=== PATIENT | female | born 1975 | race Two or more races ===

== ENCOUNTER 2017-08-07 09:24 | Outpatient (CLI) | payer OTHER ==
[~2017-08-07 09:24] MED LIST: DICY10CA PO; ESTR0.624; ESTR0.624 PO; OMEPRAZOLE40 MG PO; PHENERGAN25 MG PO; PRILOSEC20 MG PO; ZANTAC300 MG PO
== END 2017-08-07 10:52 | disposition home or self-care (01) ==
LOC: SONOGRAMA 09:24
DX: E04.8 Other specified nontoxic goiter (principal)

== ENCOUNTER 2017-08-17 13:00 | Outpatient (CLI) | payer OTHER | END 2017-08-17 13:05 | disposition home or self-care (01) | LOC: LAB 13:00 | DX: R50.9 Fever, unspecified (principal) ==

== ENCOUNTER → 2017-08-17 | Outpatient (CLI) | payer OTHER ==
[~2017-08-17] VITALS: Ht 152.4 cm; Wt 102.1 kg
== END | disposition home or self-care (01) ==
LOC: PPHC 11:49
DX: B34.9 Viral infection, unspecified (principal)

== ENCOUNTER 2017-09-04 07:02 | Outpatient (CLI) | payer OTHER | END 2017-09-04 07:09 | disposition home or self-care (01) | LOC: LAB 07:02 | DX: E03.8 Other specified hypothyroidism (principal) ==

== ENCOUNTER 2017-10-03 13:53 | Outpatient (CLI) | payer OTHER | END 2017-10-03 14:01 | disposition home or self-care (01) | LOC: LAB 13:53 | DX: R50.9 Fever, unspecified (principal) ==

== ENCOUNTER → 2017-10-03 | Outpatient (CLI) | payer OTHER | END | disposition home or self-care (01) | LOC: PPHC 12:22 | DX: B34.9 Viral infection, unspecified (principal) ==

== ENCOUNTER 2017-10-12 12:34 | Outpatient (CLI) | payer OTHER | END 2017-10-12 12:42 | disposition home or self-care (01) | LOC: RAD 12:34 | DX: R05 Cough (principal) ==

== ENCOUNTER → 2017-10-12 | Outpatient (CLI) | payer OTHER | END | disposition home or self-care (01) | LOC: PPHC 11:18 | DX: R05 Cough (principal) ==

== ENCOUNTER 2017-10-20 13:58 | Emergency (ER) | payer OTHER ==
[~2017-10-20] VITALS: Ht 165.1 cm; Wt 102.1 kg
== END 2017-10-20 15:53 | disposition home or self-care (01) ==
LOC: ER 13:58
DX: J06.9 Acute upper respiratory infection, unspecified (principal)

== ENCOUNTER → 2018-02-20 06:59 | Outpatient (CLI) | payer OTHER | END | disposition home or self-care (01) | LOC: LAB 06:59 | DX: R42 Dizziness and giddiness (principal); R51 Headache; E78.2 Mixed hyperlipidemia ==

== ENCOUNTER → 2018-12-26 10:04 | Outpatient (CLI) | payer OTHER | END | disposition home or self-care (01) | LOC: LAB 10:04 | DX: E06.3 Autoimmune thyroiditis (principal); Z11.3 Encounter for screening for infections with a predominantly sexual mode of transmission ==

== ENCOUNTER 2019-01-16 08:59 | Outpatient (CLI) | payer OTHER | END 2019-01-16 09:10 | disposition home or self-care (01) | LOC: RAD 08:59 → MRI 09:15 | DX: E23.6 Other disorders of pituitary gland (principal); E04.2 Nontoxic multinodular goiter | CPT/HCPCS: 70553 ==

== ENCOUNTER 2019-05-22 16:12 | Outpatient (CLI) | payer OTHER | END 2019-05-22 16:48 | disposition home or self-care (01) | LOC: RAD 16:12 | DX: M25.552 Pain in left hip (principal); M25.551 Pain in right hip ==

== ENCOUNTER 2019-08-22 08:50 | Outpatient (CLI) | payer OTHER | END 2019-08-22 08:55 | disposition home or self-care (01) | LOC: LAB 08:50 | DX: J11.1 Influenza due to unidentified influenza virus with other respiratory manifestations (principal) ==

== ENCOUNTER 2019-10-09 11:27 | Outpatient (CLI) | payer OTHER | END 2019-10-09 11:31 | disposition home or self-care (01) | LOC: LAB 11:27 | DX: E03.8 Other specified hypothyroidism (principal); E21.4 Other specified disorders of parathyroid gland; R94.7 Abnormal results of other endocrine function studies; N93.1 Pre-pubertal vaginal bleeding ==

== ENCOUNTER 2019-10-29 13:32 | Outpatient (CLI) | payer OTHER | END 2019-10-29 15:21 | disposition home or self-care (01) | LOC: NUCLEAR 13:32 | DX: I73.9 Peripheral vascular disease, unspecified (principal); M79.662 Pain in left lower leg; M79.661 Pain in right lower leg ==

== ENCOUNTER 2019-12-17 11:33 | Outpatient (CLI) | payer OTHER ==
[2019-12-17] MEDS ORDERED: CILOXAN5 ML OP (12:09)
== END 2019-12-17 16:00 | disposition home or self-care (01) ==
LOC: OFIC 805 11:33
DX: T16.1XXA Foreign body in right ear, initial encounter (principal); H61.21 Impacted cerumen, right ear

== ENCOUNTER 2020-04-07 07:17 | Outpatient (CLI) | payer OTHER ==
[~2020-04-07 07:17] MED LIST changes: +CILOXAN5 ML OP; +CYCLOBENZAPRINE10 MG PO; +NAPR500T14 PO
== END 2020-04-07 07:26 | disposition home or self-care (01) ==
LOC: RAD 07:17
PROVIDERS: ATTEND Physical Medicine & Rehabilitation
DX: M54.5 Low back pain (principal)

== ENCOUNTER 2020-10-16 12:56 | Outpatient (CLI) | payer OTHER ==
[~2020-10-16 12:56] MED LIST changes: +DICLOFENAC POTA50 MG PO; +NORFLEX100MG PO
== END 2020-10-16 13:02 | disposition home or self-care (01) ==
LOC: MAMO-SONO 12:56
PROVIDERS: ATTEND Specialist
DX: Z12.31 Encounter for screening mammogram for malignant neoplasm of breast (principal); N63.0 Unspecified lump in unspecified breast

== ENCOUNTER 2020-11-17 09:44 | Emergency (ER) | payer OTHER ==
[~2020-11-17] VITALS: Ht 165.1 cm; Wt 97.5 kg
[2020-11-17] MEDS ORDERED: PERCOCET 5-3251 EACH PO (12:38)
[2020-11-17] MEDS ORDERED: DICLOFENAC SOD100 MG PO (12:38)
[2020-11-17] MEDS ORDERED: SKELAXIN800 MG PO (12:38)
== END 2020-11-17 12:57 | disposition home or self-care (01) ==
LOC: ER 09:44
DX: M54.5 Low back pain (principal); M62.830 Muscle spasm of back

== ENCOUNTER 2021-01-13 10:13 | Outpatient (CLI) | payer OTHER ==
[~2021-01-13 10:13] MED LIST changes: +DICLOFENAC SOD100 MG PO; +PERCOCET 5-3251 EACH PO; +SKELAXIN800 MG PO
== END 2021-01-13 16:39 | disposition home or self-care (01) ==
LOC: RAD 10:13
PROVIDERS: ATTEND Physical Medicine & Rehabilitation
DX: M54.2 Cervicalgia (principal)

== ENCOUNTER 2021-05-20 09:38 | Outpatient (CLI) | payer OTHER | END 2021-05-20 09:41 | disposition home or self-care (01) | LOC: LAB 09:38 | PROVIDERS: ATTEND Pediatrics Neonatal-Perinatal Medicine | DX: E07.89 Other specified disorders of thyroid (principal); E78.2 Mixed hyperlipidemia ==

== ENCOUNTER 2021-07-22 09:00 | Outpatient (CLI) | payer OTHER | END 2021-07-22 09:15 | disposition home or self-care (01) | LOC: PPH VACUNA 09:00 | PROVIDERS: ATTEND Emergency Medicine Pediatric Emergency Medicine | DX: Z23 Encounter for immunization (principal) ==

== ENCOUNTER 2021-07-23 11:38 | Outpatient (CLI) | payer OTHER | END 2021-07-23 16:08 | disposition home or self-care (01) | LOC: LAB 11:38 | PROVIDERS: ATTEND Internal Medicine Infectious Disease | DX: Z20.822 Contact with and (suspected) exposure to COVID-19 (principal) ==

== ENCOUNTER 2021-07-23 13:17 | Emergency (ER) | payer OTHER ==
[~2021-07-23] VITALS: Ht 165.1 cm; Wt 102.5 kg
== END 2021-07-23 18:16 ==
LOC: ER 13:17
DX: B34.9 Viral infection, unspecified (principal); J06.9 Acute upper respiratory infection, unspecified; T50.B95A Adverse effect of other viral vaccines, initial encounter; Z92.29 Personal history of other drug therapy; Z3A.00 Weeks of gestation of pregnancy not specified; O26.899 Other specified pregnancy related conditions, unspecified trimester

== ENCOUNTER 2021-08-12 11:30 | Outpatient (CLI) | payer OTHER | END 2021-08-12 11:33 | disposition home or self-care (01) | LOC: SONOGRAMA 11:30 | PROVIDERS: ATTEND Student in an Organized Health Care Education/Training Program | DX: E04.2 Nontoxic multinodular goiter (principal) ==

== ENCOUNTER 2021-09-22 12:18 | Outpatient (CLI) | payer OTHER | END 2021-09-22 12:19 | disposition home or self-care (01) | LOC: LAB 12:18 | PROVIDERS: ATTEND Student in an Organized Health Care Education/Training Program | DX: D48.5 Neoplasm of uncertain behavior of skin (principal); E78.2 Mixed hyperlipidemia; I10 Essential (primary) hypertension; E03.8 Other specified hypothyroidism; C73 Malignant neoplasm of thyroid gland ==

== ENCOUNTER 2021-12-15 15:11 | Outpatient (CLI) | payer OTHER ==
[~2021-12-15 15:11] MED LIST changes: +NAPROXEN500 MG PO
[2021-12-15] MEDS ORDERED: CELEBREX200MG PO (16:47)
[2021-12-15] MEDS ORDERED: SKELAXIN800 MG PO (16:47)
== END 2021-12-15 15:17 | disposition home or self-care (01) ==
LOC: RAD 15:11
PROVIDERS: ATTEND Physical Medicine & Rehabilitation
DX: M25.562 Pain in left knee (principal); M54.2 Cervicalgia; M54.6 Pain in thoracic spine

== ENCOUNTER 2021-12-30 09:34 | Outpatient (CLI) | payer OTHER ==
[~2021-12-30 09:34] MED LIST changes: +CELEBREX200MG PO
== END 2021-12-30 09:41 | disposition home or self-care (01) ==
LOC: LAB 09:34
PROVIDERS: ATTEND Pediatrics Neonatal-Perinatal Medicine
DX: Z20.822 Contact with and (suspected) exposure to COVID-19 (principal); B96.0 Mycoplasma pneumoniae [M. pneumoniae] as the cause of diseases classified elsewhere

== ENCOUNTER 2022-12-14 15:32 | Outpatient (CLI) | payer OTHER | END 2022-12-14 15:34 | disposition home or self-care (01) | LOC: TOM 15:32 | PROVIDERS: ATTEND General Practice | DX: R51.9 Headache, unspecified (principal); R42 Dizziness and giddiness ==

== ENCOUNTER 2023-03-29 11:20 | Outpatient (CLI) | payer OTHER ==
[~2023-03-29 11:20] MED LIST changes: +IBUPROFEN800 MG PO
== END 2023-03-29 11:22 | disposition home or self-care (01) ==
LOC: NUCLEAR 11:20
PROVIDERS: ATTEND Internal Medicine
DX: M79.606 Pain in leg, unspecified (principal)

== ENCOUNTER 2023-05-11 13:18 | Outpatient (CLI) | payer OTHER | END 2023-05-11 13:30 | disposition home or self-care (01) | LOC: RAD 13:18 | PROVIDERS: ATTEND Physical Medicine & Rehabilitation | DX: M54.50 Low back pain, unspecified (principal); Z88.8 Allergy status to other drugs, medicaments and biological substances ==

== ENCOUNTER 2023-06-20 11:52 | Emergency (ER) | payer OTHER ==
[~2023-06-20] VITALS: Ht 165.1 cm; Wt 104.3 kg
== END 2023-06-20 14:32 | disposition home or self-care (01) ==
LOC: ER 11:52
DX: M25.561 Pain in right knee (principal); M25.562 Pain in left knee; M77.11 Lateral epicondylitis, right elbow; M77.12 Lateral epicondylitis, left elbow; R70.1 Abnormal plasma viscosity; W18.30XA Fall on same level, unspecified, initial encounter; Y93.9 Activity, unspecified; Y92.9 Unspecified place or not applicable; Y99.9 Unspecified external cause status

== ENCOUNTER 2023-08-14 11:01 | Emergency (ER) | payer OTHER ==
[~2023-08-14] VITALS: Ht 165.1 cm; Wt 104.3 kg
[2023-08-14] MEDS ORDERED: TAPAZOLE5 MG (11:18)
[2023-08-14 12:57] LABS: HEMATOCRIT 36.4 % (36.0-45.00); HEMOGLOBIN 12.3 g/dL (12.0-15.00); MEAN CELL VOLUME 81.6 fL (80.00-100.00); MEAN CORPUSCULAR HEMOGLOBIN 27.5 pg (27.00-32.0); MEAN CORPUSCULAR HGB CONC 33.7 g/dl (32.0-36.0); PLATELET COUNT 214 K/uL (150-450); RED BLOOD COUNT 4.46 M/uL (4.00-6.00); RED CELL DISTRIBUTION WIDTH 15.2 % (11.5-14.5)
[2023-08-14] MEDS ORDERED: TUSNEL LIQUID178 ML PO (13:38)
[2023-08-14] MEDS ORDERED: ZYRTEC10 M3 PO (13:38)
[2023-08-14] MEDS ORDERED: OSEL75CA PO (13:38)
== END 2023-08-14 13:51 | disposition home or self-care (01) ==
LOC: ER 11:03
PROVIDERS: General Practice
DX: J10.1 Influenza due to other identified influenza virus with other respiratory manifestations (principal); Z88.8 Allergy status to other drugs, medicaments and biological substances; Z20.822 Contact with and (suspected) exposure to COVID-19

== ENCOUNTER 2023-10-03 15:15 | Outpatient (CLI) | payer OTHER ==
[~2023-10-03 15:15] MED LIST changes: +MEDROLPACK PO; +METAXALONE800 MG PO; +OSEL75CA PO; +TAPAZOLE5 MG; +TUSNEL LIQUID178 ML PO; +ZYRTEC10 M3 PO
== END 2023-10-03 15:20 | disposition home or self-care (01) ==
LOC: MAMO-SONO 15:15
PROVIDERS: ATTEND Internal Medicine
DX: Z12.31 Encounter for screening mammogram for malignant neoplasm of breast (principal); Z12.39 Encounter for other screening for malignant neoplasm of breast

== ENCOUNTER → 2024-02-20 12:01 | Outpatient (CLI) | payer OTHER ==
[2024-02-20 12:36] LABS: HEMATOCRIT 36.9 % (36.0-45.00); HEMOGLOBIN 12.6 g/dL (12.0-15.00); MEAN CELL VOLUME 83.6 fL (80.00-100.00); MEAN CORPUSCULAR HEMOGLOBIN 28.5 pg (27.00-32.0); MEAN CORPUSCULAR HGB CONC 34.1 g/dl (32.0-36.0); PLATELET COUNT 236 K/uL (150-450); RED BLOOD COUNT 4.42 M/uL (4.00-6.00)
== END | disposition home or self-care (01) ==
LOC: LAB 12:01
PROVIDERS: ATTEND Pediatrics
DX: Z20.822 Contact with and (suspected) exposure to COVID-19 (principal); J09.X2 Influenza due to identified novel influenza A virus with other respiratory manifestations

== ENCOUNTER 2024-06-13 11:30 | Outpatient (CLI) | payer OTHER | END 2024-06-13 12:00 | disposition home or self-care (01) | LOC: PPH VACUNA 11:30 | PROVIDERS: ATTEND Emergency Medicine Pediatric Emergency Medicine | DX: Z23 Encounter for immunization (principal) ==

== ENCOUNTER 2024-06-20 11:08 | Outpatient (CLI) | payer OTHER | END 2024-06-20 11:10 | disposition home or self-care (01) | LOC: SONOGRAMA 11:08 | PROVIDERS: ATTEND Internal Medicine | DX: M25.572 Pain in left ankle and joints of left foot (principal) ==

== ENCOUNTER → 2024-06-26 09:46 | Outpatient (CLI) | payer OTHER ==
[2024-06-26 10:27] LABS: HEMATOCRIT 37.7 % (36.0-45.00); MEAN CELL VOLUME 81.1 fL (80.00-100.00); MEAN CORPUSCULAR HGB CONC 34.6 g/dl (32.0-36.0); PLATELET COUNT 234 K/uL (150-450); RED BLOOD COUNT 4.65 M/uL (4.00-6.00); RED CELL DISTRIBUTION WIDTH 13.6 % (11.5-14.5)
[2024-06-26 10:29] LABS: PH,URINE 5.5 (5.0-8.0); URINE APPEARANCE Clear; URINE BILIRRUBIN Negative (NEGATIVE); URINE BLOOD Negative; URINE COLOR Yellow; URINE GLUCOSE Negative (NEGATIVE); URINE KETONE Negative (NEGATIVE); URINE LEUKOCYTE Negative; URINE NITRATE Negative; URINE PROTEIN Negative (NEGATIVE); URINE UROBILINOGEN 0.2 E.U./dl
[2024-06-26 10:33] LABS: URINE BACTERIA 91.9 uL (0.0-1933); URINE EPITHELIAL CELLS 6.9 uL (0.0-38.8); URINE RBC 5.9 uL (0.0-20.8)
[2024-06-26 10:45] LABS: URINE WBC 1.3 uL (0.0-23.2)
[2024-06-26 10:47] LABS: ERYTHROCYTE SEDIMENTATION RATE 10 mm/hr
[2024-06-26 11:54] LABS: ALBUMIN 3.9 gm/dL (3.4-5.0); ALKALINE PHOSPHATASE 72 U/L (50-136); ALT/SGPT 19 U/L (12-78); ANION GAP 7 (10.0-20.0); AST/SGOT 10 U/L (15-37); BILIRUBIN TOTAL 0.58 mg/dL (0.3-1.2); BLOOD UREA NITROGEN 14 mg/dL (7-18); BUN CREA RATIO 21 (7.0-25.0); C-REACTIVE PROTEIN 0.63 MG/DL (0.00-0.29); CALCIUM 9.1 mg/dL (8.5-10.1); CARBON DIOXIDE 30 mEq/L (21-32); CHLORIDE 109 mmol/L (98-107); CHOL HDL RATIO 2.2 (0-5.0); CHOLESTEROL 175 mg/dL (0-200); CREATININE SERUM 0.68 mg/dL (0.55-1.02); FREE TRIODOTIRONINE 4.37 pg/ml (2.18-3.98); GFR 91.96; GLUCOSE FASTING 79 mg/dL (65-100); HDL 81 mg/dl (40-60); LDL 81 mg/dl (0-130); OSMOLALITY SERUM 283 MOSM/KG (275-295); POTASSIUM 4.07 mEq/L (3.5-5.1); SODIUM 142 mmol/L (136-145); T4 TOTAL 11.78 UG/DL (4.8-13.9); TOTAL PROTEIN 6.9 gm/dL (6.4-8.2); TRIGLYCERIDES 63 mg/dL (0-150); VLDL 12 (0-39)
[2024-06-26 11:55] LABS: TSH < 0.005 uIU/mL (0.358-3.74)
== END | disposition home or self-care (01) ==
LOC: LAB 09:46
PROVIDERS: ATTEND Internal Medicine
DX: E04.2 Nontoxic multinodular goiter (principal); E55.9 Vitamin D deficiency, unspecified; Z00.00 Encounter for general adult medical examination without abnormal findings; Z13.1 Encounter for screening for diabetes mellitus; E78.9 Disorder of lipoprotein metabolism, unspecified; Z12.11 Encounter for screening for malignant neoplasm of colon; E66.01 Morbid (severe) obesity due to excess calories; R91.1 Solitary pulmonary nodule; Z13.220 Encounter for screening for lipoid disorders; Z12.10 Encounter for screening for malignant neoplasm of intestinal tract, unspecified; R73.9 Hyperglycemia, unspecified

== ENCOUNTER → 2024-09-18 12:46 | Outpatient (CLI) | payer OTHER ==
[2024-09-18 14:25] LABS: MYCOPLASMA PNEUMONIAE IGM NON REACTIVE (NO REACTIVE)
== END | disposition home or self-care (01) ==
LOC: LAB 12:46
PROVIDERS: ATTEND Pediatrics
DX: A49.3 Mycoplasma infection, unspecified site (principal); E05.00 Thyrotoxicosis with diffuse goiter without thyrotoxic crisis or storm; J09.X2 Influenza due to identified novel influenza A virus with other respiratory manifestations

== ENCOUNTER → 2024-10-09 07:00 | Outpatient (CLI) | payer OTHER | END | disposition home or self-care (01) | LOC: NUCLEAR 09-18 07:00 | PROVIDERS: ATTEND Internal Medicine Endocrinology, Diabetes & Metabolism | DX: E05.00 Thyrotoxicosis with diffuse goiter without thyrotoxic crisis or storm (principal) ==

== ENCOUNTER 2024-10-10 07:16 | Outpatient (CLI) | payer OTHER | END 2024-10-10 07:17 | disposition home or self-care (01) | LOC: NUCLEAR 07:16 | DX: E03.0 Congenital hypothyroidism with diffuse goiter (principal) ==

== ENCOUNTER 2024-11-22 16:55 | Emergency (ER) | payer OTHER ==
[~2024-11-22] VITALS: Ht 165.1 cm; Wt 106.6 kg
[2024-11-22] MEDS ORDERED: ORPHENADRINE CITRATE 30 MG/ML AMPUL IM STA (18:50)
[2024-11-22] MEDS ORDERED: KETOROLAC TROMETHAMINE 30 MG VIAL IM STA (18:50)
[2024-11-22] MEDS ORDERED: KETOROLAC TROMETHAMINE 30 MG VIAL ONE (18:57)
[2024-11-22] MEDS ORDERED: ORPHENADRINE CITRATE 30 MG/ML AMPUL ONE (18:58)
== END 2024-11-22 19:18 | disposition home or self-care (01) ==
LOC: ER 16:55
DX: S90.01XA Contusion of right ankle, initial encounter (principal); S80.01XA Contusion of right knee, initial encounter; S30.0XXA Contusion of lower back and pelvis, initial encounter; W10.8XXA Fall (on) (from) other stairs and steps, initial encounter; Y93.89 Activity, other specified; Y92.89 Other specified places as the place of occurrence of the external cause; Y99.9 Unspecified external cause status; M51.369 Other intervertebral disc degeneration, lumbar region without mention of lumbar back pain or lower extremity pain; Z88.8 Allergy status to other drugs, medicaments and biological substances

== ENCOUNTER 2024-12-02 12:35 | Outpatient (CLI) | payer OTHER ==
[2024-12-02 16:51] LABS: T4 TOTAL 8.55 UG/DL (4.8-13.9); TSH 0.659 uIU/mL (0.358-3.74)
== END 2024-12-02 12:36 | disposition home or self-care (01) ==
LOC: LAB 12:35
PROVIDERS: ATTEND Pediatrics Neonatal-Perinatal Medicine
DX: E03.9 Hypothyroidism, unspecified (principal)

== ENCOUNTER 2025-01-13 07:54 | Emergency (ER) | payer OTHER ==
[~2025-01-13] VITALS: Ht 165.1 cm; Wt 104.3 kg
[~2025-01-13 07:54] MED LIST changes: +DICLOFENAC SODI75 MG PO
[2025-01-13] MEDS ORDERED: KETOROLAC TROMETHAMINE 60 MG VIAL IM STA (08:51)
[2025-01-13] MEDS ORDERED: ORPHENADRINE CITRATE 30 MG/ML AMPUL IM STA (08:53)
[2025-01-13] MEDS ORDERED: ORPHENADRINE CITRATE 30 MG/ML AMPUL ONE (09:06)
[2025-01-13] MEDS ORDERED: KETOROLAC TROMETHAMINE 60 MG VIAL IM ONE (09:07)
== END 2025-01-13 09:25 | disposition home or self-care (01) ==
LOC: ER 08:06
DX: T14.90XA Injury, unspecified, initial encounter (principal); W19.XXXA Unspecified fall, initial encounter; Y93.89 Activity, other specified; Y92.89 Other specified places as the place of occurrence of the external cause; Y99.8 Other external cause status; Z88.8 Allergy status to other drugs, medicaments and biological substances

== ENCOUNTER 2025-01-17 13:50 | Outpatient (CLI) | payer OTHER | END 2025-01-17 13:51 | disposition home or self-care (01) | LOC: SONOGRAMA 13:50 | PROVIDERS: ATTEND Physical Medicine & Rehabilitation | DX: S93.401D Sprain of unspecified ligament of right ankle, subsequent encounter (principal); M76.61 Achilles tendinitis, right leg ==

== ENCOUNTER 2025-02-18 14:02 | Emergency (ER) | payer OTHER ==
[~2025-02-18] VITALS: Ht 165.1 cm; Wt 86.2 kg
[2025-02-18] MEDS ORDERED: KETOROLAC TROMETHAMINE 60 MG VIAL IM ONE ×2 (14:30→15:34)
[2025-02-18] MEDS ORDERED: ORPHENADRINE CITRATE 30 MG/ML AMPUL IM ONE (14:30)
[2025-02-18] MEDS ORDERED: ORPHENADRINE CITRATE 30 MG/ML AMPUL ONE (15:34)
[2025-02-18] MEDS ORDERED: DICLOFENAC POTA50 MG PO (17:40)
[2025-02-18 18:29] VITALS: BP 110/60; O2SAT 98
== END 2025-02-18 18:31 | disposition home or self-care (01) ==
LOC: ER 14:02
DX: S20.229A Contusion of unspecified back wall of thorax, initial encounter (principal); S40.012A Contusion of left shoulder, initial encounter; V49.9XXA Car occupant (driver) (passenger) injured in unspecified traffic accident, initial encounter; Y93.89 Activity, other specified; Y92.413 State road as the place of occurrence of the external cause; Y99.8 Other external cause status; Z88.8 Allergy status to other drugs, medicaments and biological substances

== ENCOUNTER 2025-06-14 12:32 | Emergency (ER) | payer OTHER ==
[~2025-06-14] VITALS: Ht 165.1 cm; Wt 106.6 kg
[2025-06-14] MEDS ORDERED: KETOROLAC TROMETHAMINE 15 MG VIAL IM STA (14:22)
[2025-06-14] MEDS ORDERED: KETOROLAC TROMETHAMINE 30 MG VIAL ONE (14:33)
[2025-06-14] MEDS ORDERED: NORFLEX100MG PO (16:48)
[2025-06-14] MEDS ORDERED: DICLOFENAC SODI75 MG PO (16:48)
== END 2025-06-14 18:22 | disposition home or self-care (01) ==
LOC: ER 12:32
DX: S89.82XA Other specified injuries of left lower leg, initial encounter (principal); E03.8 Other specified hypothyroidism; Z88.8 Allergy status to other drugs, medicaments and biological substances; S89.81XA Other specified injuries of right lower leg, initial encounter; W01.0XXA Fall on same level from slipping, tripping and stumbling without subsequent striking against object, initial encounter; Y93.89 Activity, other specified; Y92.238 Other place in hospital as the place of occurrence of the external cause; S39.82XA Other specified injuries of lower back, initial encounter; S60.542A External constriction of left hand, initial encounter; S99.811A Other specified injuries of right ankle, initial encounter

== ENCOUNTER 2025-07-22 13:12 | Outpatient (CLI) | payer OTHER ==
[2025-07-22 13:46] LABS: BASO % 0.8 % (0.1-1.2); EOS # 0.26 (0.04-0.54); EOS % 4.2 % (0.7-7.0); LYMPH # 2.00 (1.18-3.74); LYMPH % 32.3 % (19.3-53.1); MEAN PLATELET VOLUME 9.50 fl (9.4-12.4); MONO # 0.46 (0.24-0.82); MONO % 7.4 % (4.7-12.5); NEUT # 3.40 (1.56-6.13); NEUT % 55.0 % (34.0-71.1); RED CELL DISTRIBUTION WIDTH 13.2 % (11.6-14.4)
[2025-07-22 14:35] LABS: ALT/SGPT 19.0 U/L (12-78); AST/SGOT 11.0 U/L (15-37); BILIRUBIN TOTAL 0.52 mg/dL (0.3-1.2); BUN CREA RATIO 16.0 (7.0-25.0); CREATININE SERUM 0.79 mg/dL (0.55-1.02); GFR 77.03; GLOBULINA 3.2 G/DL (2.4-3.5); GLUCOSE FASTING 90.0 mg/dL (65-100); OSMOLALITY SERUM 281.0 MOSM/KG (275-295); TSH 1.11 uIU/mL (0.358-3.74)
== END 2025-07-22 13:18 | disposition home or self-care (01) ==
LOC: LAB 13:12
DX: E03.2 Hypothyroidism due to medicaments and other exogenous substances (principal); J44.89 Other specified chronic obstructive pulmonary disease

== ENCOUNTER 2025-07-28 11:22 | Outpatient (CLI) | payer OTHER ==
[2025-07-29] MEDS ORDERED: DELSYM COUGH+C180 ML PO (12:48)
[2025-07-29] MEDS ORDERED: AZITHROMYCIN500 MG PO (12:48)
== END 2025-07-28 12:12 | disposition home or self-care (01) ==
LOC: MAMO-SONO 11:22
PROVIDERS: ATTEND Surgery
DX: N60.11 Diffuse cystic mastopathy of right breast (principal); N60.12 Diffuse cystic mastopathy of left breast

== ENCOUNTER → 2025-07-29 | Emergency (ER) | payer OTHER ==
[~2025-07-29] VITALS: Ht 165.1 cm; Wt 104.3 kg
[~2025-07-29] MED LIST changes: +AZITHROMYCIN500 MG PO; +CEFTRIAXONE SODIUM 1,000 MG VIAL IM STA; +CETIRIZINE HCL 10 MG TABLET PO ONE; +DELSYM COUGH+C180 ML PO; +DEXAMETHASONE SODIUM PHOSPHATE 4 MG/ML VIAL IM STA; +GUAIFENESIN 200 MG/10 ML BLIST.PACK PO ONE; +IPRATROPIUM BROMIDE 0.5 MG/2.5 ML AMPUL.NEB IH SCH; +LEVALBUTEROL HCL 1.25 MG/3 ML SOLUTION IH SCH
[2025-07-29 08:46] VITALS: BP 114/60; O2SAT 97
[2025-07-29 09:55] LABS: BASO % 0.9 % (0.1-1.2); EOS # 0.32 (0.04-0.54); EOS % 4.1 % (0.7-7.0); LYMPH # 2.27 (1.18-3.74); LYMPH % 29.1 % (19.3-53.1); MEAN PLATELET VOLUME 9.30 fl (9.4-12.4); MONO # 0.43 (0.24-0.82); MONO % 5.5 % (4.7-12.5); NEUT # 4.68 (1.56-6.13); NEUT % 60.1 % (34.0-71.1); RED CELL DISTRIBUTION WIDTH 13.4 % (11.6-14.4)
[2025-07-29 10:13] LABS: COVID-19 AG NEGATIVE (NEGATIVE)
== END | disposition home or self-care (01) ==
LOC: ER 08:12
PROVIDERS: General Practice
DX: J98.8 Other specified respiratory disorders (principal); Z20.822 Contact with and (suspected) exposure to COVID-19; E03.9 Hypothyroidism, unspecified; Z88.8 Allergy status to other drugs, medicaments and biological substances